=== PATIENT | male | born 1980 | race American Indian/Alaskan Native ===

== ENCOUNTER 2019-01-18 19:58 | Emergency (ER) | payer OTHER, MEDICAID ==
[~2019-01-18] VITALS: Ht 172.7 cm; Wt 74.8 kg
--- NOTE | 2019-01-18 20:00 | NUR ---
patient BIB w/c. ambulates with steady gait. A&O x4. c/o left sided CP aggrevated by movement s/p "horsing around with girlfriend" today. Patient states that pain is 1/10 when resting and 8/10 when moving. Breathing even and unlabored. Denies any SOB. speech is clear and able to make needs known / follow commands. denies any / GI distress
--- NOTE | 2019-01-18 20:05 | NUR ---
Dr. Helms at bedside for MSE
--- NOTE | 2019-01-18 20:24 | NUR ---
patient taken to CT scan
[2019-01-18] MEDS ORDERED: ONDANSETRON 4 MG/2 ML VIAL IM ONE (21:15)
[2019-01-18] MEDS ORDERED: ONDANSETRON 4 MG/2 ML VIAL ONE (21:15)
[2019-01-18] MEDS ORDERED: HYDROMORPHONE 1 MG/1 ML DISP.SYRIN IM ONE (21:15)
[2019-01-18] MEDS ORDERED: HYDROMORPHONE 1 MG/1 ML DISP.SYRIN ONE (21:15)
--- NOTE | 2019-01-18 21:45 | NUR ---
Patient given written and verbal discharge instructions. Patient verbalizes understanding of instructions. Patient is ambulatory with steady gait. Refuses offer of alf placement. Patient given list of available shelters in surrounding area. Patient girlfriend Grisel at bedside stated she will be driving patient
== END 2019-01-18 21:45 | disposition home or self-care (01) ==
LOC: ER 20:01
DX: R07.89 Other chest pain (principal); R06.02 Shortness of breath
CPT/HCPCS: 71250; 93005; 96372 ×2; 99284; J1170; J2405; A4663